=== PATIENT | female | born 1995 | race African-American/Black ===

== ENCOUNTER 2016-09-12 07:34 | Observation (INO) | payer MEDICAID ==
[~2016-09-12] VITALS: Ht 165.1 cm; Wt 99.8 kg
[2016-09-12] MEDS ORDERED: FERR-63 PO (08:01)
[2016-09-12] MEDS ORDERED: PREN-88 PO (08:01)
[2016-09-12] MEDS: SODIUM CHLORIDE 0.9% 1,000 ML IV SCH ×2 (08:35→09:45)
== END 2016-09-12 11:14 | disposition home or self-care (01) ==
LOC: L&D 07:34
PROVIDERS: ADMIT Obstetrics & Gynecology; ATTEND Obstetrics & Gynecology
DX: O46.93 Antepartum hemorrhage, unspecified, third trimester (principal); O26.893 Other specified pregnancy related conditions, third trimester; R10.9 Unspecified abdominal pain; Z3A.37 37 weeks gestation of pregnancy
CPT/HCPCS: 96360; 96361; 99281; G0378; J7030